=== PATIENT | male | born 1945 | race Caucasian/White ===

== ENCOUNTER 2022-04-03 13:23 | Emergency (ER) | payer OTHER ==
[~2022-04-03] VITALS: Ht 165.1 cm; Wt 72.7 kg
[2022-04-03 14:10] LABS: Basophils # (auto) 0.1 10 ^3/uL (0-0.2); Basophils % (auto) 1.2 % (0.0-2.0); Eosinophils # (auto) 0.5 10 ^3/uL (0-0.8); Hematocrit 45.7 % (41.0-53.0); Hemoglobin 15.7 g/dL (13.5-17.5); Lymphocytes # (auto) 2.4 10 ^3/uL (0.4-5.4); Lymphocytes % (auto) 25.6 % (10.0-50.0); Mean Corpuscular Hemoglobin 31.5 pg (28.0-32.0); Mean Corpuscular Hgb Conc. 34.3 g/dL (32.0-36.0); Mean Corpuscular Volume 91.9 fL (80.0-100.0); Monocytes # (auto) 0.8 10 ^3/uL (0-1.3); Monocytes % (auto) 8.7 % (0.0-12.0); Neutrophils # (auto) 5.5 10 ^3/uL (1.6-8.6); Neutrophils % (auto) 59.5 % (37.0-80.0); Nucleated Red Blood Cells % 0.1 %; Red Blood Cells 4.97 10^6/uL (4.5-5.90); Red Cell Distribution Width 14.1 % (11.8-14.3); White Blood Cell 9.3 10^3/uL (4.4-10.8)
[2022-04-03 14:28] LABS: INR 1.08 (0.9-1.15); Partial Thromboplastin Time 40.4 sec (24.6-33.4)
[2022-04-03 15:21] LABS: Alanine Aminotransferase 58 U/L (16-61); Alkaline Phosphatase 69 U/L (45-117); Anion Gap 5 (5-15); Aspartate Aminotransferase 39 U/L (15-37); BUN/Creatinine Ratio 16.3; Bilirubin, Total < 0.1 mg/dL (0.2-1.0); Blood Urea Nitrogen 14 mg/dL (7-18); Calcium 9.5 mg/dL (8.5-10.1); Carbon Dioxide 30 mmol/L (21-32); Chloride 107 mmol/L (98-107); GFR African American 111 mL/min; GFR Non-African American 91 mL/min; Glucose 91 mg/dL (74-106); Potassium 4.4 mmol/L (3.5-5.1); Sodium 142 mmol/L (136-145)
[2022-04-03 15:22] LABS: Magnesium 2.4 mg/dL (1.6-2.6); Total Protein 6.6 g/dL (6.4-8.2)
[2022-04-03 17:27] LABS: Urine Bacteria NONE SEEN /hpf (None Seen); Urine Blood Negative /uL (Negative); Urine Mucus FEW (None Seen); Urine Specific Gravity 1.015 (1.001-1.035); Urine WBC <1 /hpf (0 - 3)
[2022-04-03 21:15] VITALS: BP 153/56
== END 2022-04-03 21:29 | disposition home or self-care (01) ==
LOC: ER 13:23 → EDBD 13:23 → ER 21:29
DX: R00.2 Palpitations (principal); I10 Essential (primary) hypertension; I25.2 Old myocardial infarction; Z20.822 Contact with and (suspected) exposure to COVID-19; Z88.0 Allergy status to penicillin
CPT/HCPCS: 36415; 71045; 80053; 81001; 83735; 83880; 84484; 85025; 85379; 85610; 85730; 87426; 93005